=== PATIENT | female | born 1935 | race Hispanic/Latino ===

== ENCOUNTER → 2017-10-25 | Emergency (ER) | payer MEDICARE, OTHER ==
[~2017-10-25] VITALS: Ht 154.9 cm; Wt 76.2 kg
[~2017-10-25] MED LIST: CEPHALEXIN500 MG PO; TETANUS/DIPHTHERIA TOX ADULT 0.5 ML SYR IM ONE
--- NOTE | 2017-10-25 15:26 | Diagnostic Imaging Report ---
Right hand - 3 views HISTORY: Pain. COMPARISON: None available. FINDINGS: Bones: No acute displaced fracture. No expansile lytic or sclerotic lesion. Joints: Degenerative changes are present in multiple proximal interphalangeal joints and distal interphalangeal joints. No dislocation. Soft tissues: Focal density projects over the soft tissues of the base of the fifth digit, best visualized on the oblique projection. IMPRESSION: Focal density projecting over the base of the fifth digit may represent a foreign body. Signed by: Dr. Anselmo Morrow M.D. on 10/25/2017 3:22 PM
[2017-10-25 15:52] VITALS: BP 160/89
== END | disposition home or self-care (01) ==
LOC: ER 14:16
DX: S61.246A Puncture wound with foreign body of right little finger without damage to nail, initial encounter (principal); W25.XXXA Contact with sharp glass, initial encounter; Y92.008 Other place in unspecified non-institutional (private) residence as the place of occurrence of the external cause
CPT/HCPCS: 90714